=== PATIENT | male | born 1940 | race Caucasian/White ===

== ENCOUNTER 2020-10-09 07:15 | Emergency (ER) | payer MEDICARE, OTHER ==
[~2020-10-09] VITALS: Ht 172.7 cm; Wt 65.9 kg
[2020-10-09 07:17] VITALS: Ht 172.7 cm; Wt 65.9 kg
[2020-10-09] MEDS ORDERED: LISINOPRIL40 MG PO (07:19)
[2020-10-09] MEDS ORDERED: HYDROCHLOROTH12.5 M1 PO (07:20)
[2020-10-09 08:29] LABS: BILIRUBIN NEGATIVE (NEGATIVE); KETONE 2+ mg/dL (< 1+); NITRITE NEGATIVE (NEGATIVE); PH 5.5 (5.0-8.0); UROBILINOGEN 2 mg/dL (< 2)
[2020-10-09 08:30] LABS: SQUAMOUS EPITHELIAL <1 HPF (0-4); WHITE CELLS - URINE 4 HPF (0-1)
[2020-10-09 08:59] LABS: BASOPHILS 0.5 % (0-2); EOSINOPHILS 0.4 % (0-7); HEMATOCRIT 38.8 % (42.0-54.0); HEMOGLOBIN 13.1 g/dL (13.5-17.5); MCH 30.2 pg (26.0-34.0); MCHC 33.7 g/dL (31.0-37.0); MCV 89.6 fL (80.0-100.0); MEAN PLATELET VOLUME 7.6 fL (7.4-10.4); MONOCYTES 7.7 % (2-11); NEUTROPHILS 83.4 % (40-80); PLATELET COUNT 598 10x3/uL (130-400); RBC 4.33 10x6/uL (4.20-6.10); RDW 13.1 % (11.5-14.5); WBC 16.6 10x3/uL (4.8-10.8)
[2020-10-09 09:00] LABS: CALC OSMOLALITY 260 mosm/kg (275-300); CALCIUM 9.1 mg/dL (8.5-10.1); CARBON DIOXIDE 28.7 mmol/L (21.0-32.0); CHLORIDE - SERUM 90 mmol/L (98-107); CREATININE - SERUM 0.8 mg/dL (0.6-1.3); GLUCOSE 107 mg/dL (74-106); POTASSIUM - SERUM 3.6 mmol/L (3.5-5.1); SODIUM 129 mmol/L (136-145); UREA NITROGEN 18 mg/dL (7-18); eGFR NON AFRICAN AMERICAN > 90 mL/min (90-120)
[2020-10-09 09:09] LABS: ALBUMIN 2.7 g/dL (3.4-5.0); ALKALINE PHOSPHATASE 78 U/L (30-120); ALT (SGPT) 15 U/L (10-68); BILIRUBIN - TOTAL 0.29 mg/dL (0.2-1.3); PROTEIN - SERUM 7.7 g/dL (6.4-8.2)
[2020-10-09 09:10] LABS: LIPASE 45 U/L (73-393); TROPONIN-I < 0.017 ng/mL (0.000-0.060)
[2020-10-09] MEDS ORDERED: CARAFATE1 G PO (12:14)
[2020-10-09] MEDS ORDERED: PROTONIX40 MG PO (12:14)
[2020-10-09 12:26] VITALS: BP 134/73
== END 2020-10-09 12:29 | disposition home or self-care (01) ==
LOC: D.ER 07:15
PROVIDERS: Emergency Medicine
DX: R10.9 Unspecified abdominal pain (principal); K26.9 Duodenal ulcer, unspecified as acute or chronic, without hemorrhage or perforation; E87.1 Hypo-osmolality and hyponatremia; R97.20 Elevated prostate specific antigen [PSA]; I10 Essential (primary) hypertension; Z72.0 Tobacco use